=== PATIENT | female | born 1960 | race Caucasian/White ===

== ENCOUNTER 2017-04-28 12:08 | Outpatient (CLI) | payer OTHER ==
--- NOTE | 2017-04-28 12:42 | RAD ---
CHEST TWO VIEW: History: Tuberculosis. Comparison: 12-10-16 FINDINGS: Lungs are clear. No pneumothorax or effusion. Cardiac silhouette and mediastinal contours are within normal limits. No acute osseous abnormality. IMPRESSION: No evidence of active tuberculosis. POS: [id number]
== END 2017-04-28 12:09 | disposition home or self-care (01) ==
LOC: MADRAD 12:08
PROVIDERS: ATTEND Preventive Medicine Public Health & General Preventive Medicine
DX: B90.9 Sequelae of respiratory and unspecified tuberculosis (principal)
CPT/HCPCS: 71046